=== PATIENT | male | born 1980 | race Caucasian/White ===

== ENCOUNTER 2022-12-20 08:37 | Emergency (ER) | payer OTHER, BC, SELFPAY ==
[2022-12-20] VITALS (8 sets, daily range): BP systolic 129–169; BP diastolic 81–129; PULSE 63–96; RESP 14–19; TEMP 36.6; O2SAT 98–100; BMI 55.7
--- NOTE | 2022-12-20 08:50 | ECG_ITS ---
[facility] Test Date: 2022-12-20 Pat Name: Mitch Thao Department: Room: Gender: Male [place] Pilot: : 1980 Requested By: Jeison Hendrix Order Number: [id number] Bakari MD: Carlo Huber M.D. Measurements Intervals [place] Rate: 76 P: 33 [place]: 165 QRS: 29 QRSD: 87 T: 15 QT: 356 QTc: 403 Interpretive Statements SINUS RHYTHM No previous ECG available for comparison Electronically Signed On 12-20-2022 17:36:23 COATER by Carlo Huber M.D. [id number]
--- NOTE | 2022-12-20 08:59 | XR_ITS ---
WS: [id number] Exam: XR chest 1V portable [id number] Date/Time of Exam: 12/20/2022 9:16 AM Reason For Exam: dyspnea/cough No priors. Findings: The lungs are clear and fully expanded. Costophrenic angles are sharp. No infiltrates. Bronchovascula r relief appears normal. Cardiac silhouette is unremarkable. Bony elements are intact. XR/XR chest 1V portable [id number] IMPRESSION: Unremarkable chest radiograph.
[2022-12-20 09:22] LABS: Basophils % 0.3 %; Eosinophils # 0.1 10^3/uL (0.0-0.8); Eosinophils % 0.5 %; Hematocrit 46.2 % (42.0-52.0); Hemoglobin 15.2 g/dL (11.7-16.6); Lymphocytes # 1.7 10^3/uL (0.8-4.8); Lymphocytes % 16.3 %; Mean Corpuscular HGB Conc 32.9 g/dL (30.0-36.0); Mean Corpuscular Hemoglobin 28.9 pg (28.0-34.0); Mean Corpuscular Volume 87.8 fl (80-94); Mean Platelet Volume 10.4 fL (7.4-10.4); Monocytes # 0.6 10^3/uL (0.2-0.9); Monocytes % 5.8 %; Neutrophils # 7.87 10^3/uL (1.8-7.7); Neutrophils % 76.5 %; Nucleated Red Blood Cells % 0 %; Platelet Count 306 10^3/cmm (130-400); Red Blood Count 5.26 10^6/uL (4.1-5.3); Red Cell Distribution Width 13.2 % (12.1-15.1); White Blood Count 10.3 10^3/uL (4.0-10.0)
--- NOTE | 2022-12-20 09:22 | ED_ITS ---
HPI - Chest Pain General: Chief Complaint: Chest Pain Stated Complaint: throat spasms/CP Time Seen by Provider: 12/20/22 08:59 Source: patient Mode of arrival: ambulatory History of Present Illness: 42-year-old male presents to the emergency room with complaints of chest pain. Began at 3:00 yesterday. He describes a burning tightening and pressure that has been persistent. He has tried Pepto-Bismol and Advil with no relief. He had a similar episode several years ago and it was diagnosis esophageal spasm that was relieved by GI cocktail and sublingual nitro. He has no known history of coronary artery disease and he has never had any cardiac stress testing. 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 Patient is not diabetic and does not smoke MD complaint: chest pain Timing of current episode: constant Prior episodes: Yes Onset: during rest Pain location: substernal and epigastric Severity: moderate Quality: sharp Relieving factors: nothing Exacerbating factors: nothing Associated symptoms: Deny abdominal pain, diaphoresis, dyspnea, fever(s), leg edema, nausea, palpitations, sense of impending doom, syncope or vomiting Review of Systems Const: Denies: fever(s), chills, fatigue, malaise or diaphoresis ENMT: Denies: throat pain, ear or mastoid pain, nasal discharge or nasal congestion Card: Reports: chest pain; Denies: palpitations, irregular heart rhythm, edema or syncope Resp: Denies: dyspnea, productive cough, non-productive cough or wheezing GI: Denies: abdominal pain, nausea or vomiting : Denies: flank pain, dysuria, urinary frequency or urinary urgency Skin/Breast: Denies: rash or pruritus [facility] ED PFSH: Medical History (Updated 12/20/22 @ 12:04 by Jeison Calhoun DO) Esophageal spasm Obesity Physical Exam Const: COMMON NORMALS: no acute distress GENERAL APPEARANCE: cooperative and comfortable ORIENTATION/CONSCIOUSNESS: Yes awake, Yes oriented to person, Yes oriented to place and Yes oriented to time HENMT: COMMON NORMALS: normocephalic, atraumatic, hearing grossly normal bilaterally, external ears normal, EAC's normal, TM's normal bilaterally, Normal nasal mucous membranes and turbinates present, moist oral mucous membranes and oropharynx normal HEAD & SCALP: normocephalic and atraumatic NOSE: Normal nasal mucous membranes and turbinates present EXTERNAL EAR: Yes external ears normal EXTERNAL AUDITORY CANAL: EAC's normal TYMPANIC MEMBRANE: TM's normal bilaterally Eye: COMMON NORMALS: Equal, round and reactive pupils present, EOMs intact bilaterally, conjunctivae normal and no scleral icterus CONJUNCTIVA: Yes conjunctivae normal PUPIL: Yes Equal, round and reactive pupils present Neck/C-Spine: COMMON NORMALS: full ROM, no lymphadenopathy, supple and no JVD Lymph: LYMPHATIC: no lymphadenopathy noted and no lymphedema noted Resp: COMMON NORMALS: normal respiratory effort, No retractions, No use of accessory muscles and clear to auscultation bilaterally AUSCULTATION: clear to auscultation bilaterally Cardio: COMMON NORMALS: no JVD, regular rate, regular rhythm and No murmurs present (Cardio) RATE: regular rate RHYTHM: regular rhythm GI: COMMON NORMALS: Soft to palpation and No hepatosplenomegaly present AUSCULTATION: Yes normoactive bowel sounds PALPATION: Yes Soft to palpation, No Tenderness to palpation present (GI), No Guarding due to palpation present (GI) and Yes No hepatosplenomegaly present Extremity: COMMON NORMALS: normal to inspection, capillary refill normal, no clubbing, cyanosis or edema, no calf tenderness and no pedal edema Neuro: SENSORIUM/ORIENTATION: Yes oriented to person, Yes oriented to place and Yes oriented to time Skin: COMMON NORMALS: no rashes or lesions noted GENERAL SKIN EXAM: no rashes or lesions noted Course Vital Signs: Vital signs: Vital Signs Temperature 97.8 F 12/20/22 08:48 Pulse Rate 84 12/20/22 10:26 Respiratory Rate 19 H 12/20/22 09:52 Blood Pressure 148/91 12/20/22 10:26 Pulse Oximetry 100 12/20/22 10:26 Oxygen Delivery Me thod 12/20/22 10:26 MDM - Chest Pain Medical Decision Making History of esophageal spasm she he had improvement was treatments given here. He is not from this area would like to go home we will start him on isosorbide dinitrate also on high Cosamin both to use as needed also recommend he use omeprazole 20 mg twice daily no follow-up with his primary care doctor when he returns home Medical Records I reviewed the patient's medical records. Lab Data I reviewed the patient's lab results. 12/20/22 09:12 12/20/22 09:12 Radiology Impressions Chest X-Ray 12/20/22 08:59 IMPRESSION: Unremarkable chest radiograph. Laboratory Results WBC 10.3 10^3/uL (4.0-10.0) H 12/20/22 09:12 RBC 5.26 10^6/uL (4.1-5.3) 12/20/22 09:12 Hgb 15.2 g/dL (11.7-16.6) 12/20/22 09:12 Hct 46.2 % (42.0-52.0) 12/20/22 09:12 MCV 87.8 fl (80-94) 12/20/22 09:12 MCH 28.9 pg (28.0-34.0) 12/20/22 09:12 MCHC 32.9 g/dL (30.0-36.0) 12/20/22 09:12 RDW 13.2 % (12.1-15.1) 12/20/22 09:12 Plt Count 306 10^3/cmm (130-400) 12/20/22 09:12 MPV 10.4 fL (7.4-10.4) 12/20/22 09:12 Neut % (Auto) 76.5 % 12/20/22 09:12 Lymph % (Auto) 16.3 % 12/20/22 09:12 [place] % (Auto) 5.8 % 12/20/22 09:12 Eos % (Auto) 0.5 % 12/20/22 09:12 Baso % (Auto) 0.3 % 12/20/22 09:12 Neut # (Auto) 7.87 10^3/uL (1.8-7.7) H 12/20/22 09:12 Lymph # (Auto) 1.7 10^3/uL (0.8-4.8) 12/20/22 09:12 [place] # (Auto) 0.6 10^3/uL (0.2-0.9) 12/20/22 09:12 Eos # (Auto) 0.1 10^3/uL (0.0-0.8) 12/20/22 09:12 Baso # (Auto) 0.0 10^3/uL (0.0-0.1) 12/20/22 09:12 Nucleated RBC % (auto) 0 % 12/20/22 09:12 Nucleated RBCs # 0.0 /100WBC 12/20/22 09:12 Sodium 135 mmol/L (136-145) L 12/20/22 09:12 Potassium 3.9 mmol/L (3.5-5.1) 12/20/22 09:12 Chloride 99 mmol/L (98-107) 12/20/22 09:12 Carbon Dioxide 26 mmol/L (22-29) 12/20/22 09:12 Anion Gap 13.9 (5-19) 12/20/22 09:12 BUN 8 mg/dL (6-20) 12/20/22 09:12 Creatinine 0.8 mg/dL (0.7-1.2) 12/20/22 09:12 GFR Calculation 107.1 mL/min (90-130) 12/20/22 09:12 Glucose 109 mg/dL (65-115) 12/20/22 09:12 Calculated Osmolality 279 mOsm/kg (285-295) L 12/20/22 09:12 Calcium 9.0 mg/dL (8.5-10.5) 12/20/22 09:12 Total Bilirubin 0.8 mg/dL (0.15-1.2) 12/20/22 09:12 AST 18 U/L (0-40) 12/20/22 09:12 ALT 30 U/L (0-41) 12/20/22 09:12 Alkaline Phosphatase 104 U/L (40-130) 12/20/22 09:12 Troponin T Baseline 6 ng/L (0-15) 12/20/22 09:12 Troponin T 120 Minute 6.00 ng/L (0-15) 12/20/22 11:18 Delta Troponin T 0 ABS# (0-10) 12/20/22 11:18 Total Protein 8.0 g/dL (6.6-8.7) 12/20/22 09:12 Albumin 4.0 g/dL (3.5-5.2) 12/20/22 09:12 Globulin 4.0 g/dL (1.3-4.6) 12/20/22 09:12 Discharge Plan Discharge Patient Disposition: Home Clinical Impression: Esophageal spasm Condition: Stable Prescriptions: New isosorbide dinitrate 5 mg tablet 5 mg PO BID Qty: 60 0RF Rx Instructions: allow nitrate-free interval of 12-14 hrs per 24-hr period hyoscyamine sulfate 0.125 mg tablet, sublingual 0.125 mg sublingual TID PRN (Reason: dyspepsia) Qty: 60 0RF omeprazole 20 mg capsule,delayed release(DR/EC) 20 mg PO BID Qty: 60 0RF Discharge Orders: Discharge ED (Routine); Ordered 12/20/22 Ordered By: Jeison Calhoun Patient Instructions: Opioid Safety, Pain Management Activity Restrictions/Additional Instructions: You were seen today for esophageal spasm in the emergency room we will start you on high Cosamin 1 tablet sublingual every 8 hours as needed also isosorbide dinitrate 1 tablet twice a day as needed. Follow-up with your primary care doctor when you return home. Return to the nearest emergency room for further problems. Coding Level of Care Code ED Computational Theory Scientist for Shelton Skaggs
[2022-12-20 09:58] LABS: Alanine Aminotransferase 30 U/L (0-41); Alkaline Phosphatase 104 U/L (40-130); Anion Gap 13.9 (5-19); Aspartate Amino Transferase 18 U/L (0-40); Blood Urea Nitrogen 8 mg/dL (6-20); Carbon Dioxide 26 mmol/L (22-29); Chloride 99 mmol/L (98-107); Glomerular Filtration Rate 107.1 mL/min (90-130); Glucose 109 mg/dL (65-115); Osmolality Calculated 279 mOsm/kg (285-295); Potassium 3.9 mmol/L (3.5-5.1); Sodium 135 mmol/L (136-145); Total Bilirubin 0.8 mg/dL (0.15-1.2)
[2022-12-20 09:59] LABS: Troponin(5th) Baseline 6 ng/L (0-15)
[2022-12-20] MEDS: lidocaine 2% viscous 15 ML, aluminum-mag hydrox-simethicon 30 ML, sucralfate oral liq 1 GM PO (10:24)
[2022-12-20] MEDS: nitroglycerin 0.4 mg sublingual Tablet SUBLINGUAL (10:24)
--- NOTE | 2022-12-20 10:59 | ECG_ITS ---
[facility] Test Date: 2022-12-20 Pat Name: Mitch Thao Department: Room: Gender: Male [employer] President: : 1980 Requested By: Jeison Hendrix Order Number: [id number] Bakari MD: Carlo Huber M.D. Measurements Intervals [place] Rate: 72 P: 41 [place]: 188 QRS: 23 QRSD: 97 T: 21 QT: 369 QTc: 406 Interpretive Statements SINUS RHYTHM LOW QRS VOLTAGE IN PRECORDIAL LEADS [QRS DEFLECTION < 1.0 mV IN CHEST LEADS] Compared to ECG 12/20/2022 09:03:04 Low QRS voltage now present Electronically Signed On 12-20-2022 17:40:00 CODING COMPLIANCE MANAGER by Carlo Huber M.D. [id number]
[2022-12-20 11:43] LABS: Troponin 5 2HR Delta 0 ABS# (0-10)
== END 2022-12-20 12:30 | disposition home or self-care (01) ==
PROVIDERS: Emergency Provider Family Medicine
DX: K22.4 Dyskinesia of esophagus (principal)
CPT/HCPCS: 71045; 80053; 84484; 85025; 93005; 99285